=== PATIENT | male | born 1995 | race Caucasian/White ===

== ENCOUNTER 2017-03-15 14:00 | Emergency (ER) | payer OTHER ==
[~2017-03-15] VITALS: Ht 198.1 cm; Wt 130.0 kg
[2017-03-15 14:04] VITALS: BP_SYST 164; BP_DIAS 10; BP_DIAS 100; PULSE 117; RESP 18; TEMP 98.5; O2SAT 94
--- NOTE | 2017-03-15 14:06 | PD ---
Physical Exam Date Seen by Provider: Mar 15, 2017 Time Seen by Provider: 14:05 Narrative 21 yo male here for evaluation of N/V and dizziness. Going on for a few days. Per patient it started with a LUIS. Dizzy. Cannot keep anything down. No chest pain or SOB. Sent here from Urgent care. Feels like he has no energy. 23 pound loss since yesterday. Vitals are stable in triage. Awaiting bed placement. [facility] Medical Record Reviewed: Yes Supervised Visit with KOKI: Chas Muñoz Mar 15, 2017 14:06
--- NOTE | 2017-03-15 17:41 | PD ---
HPI Chief Complaint: General Weakness Time Seen by Provider: 17:23 Travel History International Travel<30 days: No Contact w/Intl Traveler<30days: No Traveled to known affect area: No History of Present Illness HPI 21yo M with no significant PMH presents to the ED with multiple complaints. Pt states he has been feeling generalized fatigue and no energy for 2 days. States he feels cramps in his abdomen if he moves. States he has been having intermittent vomiting for 1 year. Also lose 23 pounds in a day. Denies any fever, chest pain, sob, dysuria, hematuria, trauma, focal weakness or numbness. Also said that he was medically discharge from [facility] in May because of adderal. PFSH Social History Tobacco Use: No Allergies-Medications (Allergen,Severity, Reaction): Coded Allergies: No Known Allergies (Unverified , 03/15/17) Review of Systems Except as stated in HPI: all other systems reviewed are Neg Physical Exam Narrative GENERAL: 21yo M in mild distress. SKIN: Focused skin assessment warm/dry. HEAD: Atraumatic. Normocephalic. EYES: Pupils equal and round. No scleral icterus. No injection or drainage. ENT: No nasal bleeding or discharge. Mucous membranes pink and moist. NECK: Trachea midline. No JVD. CARDIOVASCULAR: Tachycardic in the 110s. No murmur appreciated. RESPIRATORY: No accessory muscle use. Clear to auscultation. Breath sounds equal bilaterally. GASTROINTESTINAL: Abdomen soft, States started cramping with palpation. No rebound tenderness or guarding. MUSCULOSKELETAL: No obvious deformities. No clubbing. No cyanosis. No edema. NEUROLOGICAL: Awake and alert. No obvious cranial nerve deficits. Motor grossly within normal limits. Normal speech. PSYCHIATRIC: Appropriate mood and affect; insight and judgment normal. Data Data Last Documented VS Vital Signs Date Time Temp Pulse Resp B/P (MAP) Pulse Ox O2 Delivery O2 Flow Rate FiO2 03/15/17 19:09 90 18 154/82 (106) 100 Room Air 03/15/17 14:04 98.5 Orders Orders Complete Blood Count With Diff (03/15/17 17:32) Basic Metabolic Panel (Bmp) (03/15/17 17:32) Thyroid Stimulating Hormone (03/15/17 17:32) Thyroxine (T4) (03/15/17 17:32) Electrocardiogram (03/15/17 ) Creatine Kinase (Cpk) (03/15/17 17:32) Ondansetron Inj (Zofran Inj) (03/15/17 17:45) Sodium Chlor 0.9% 1000 Ml Inj (Ns 1000 M (03/15/17 17:45) Lorazepam Inj (Ativan Inj) (03/15/17 17:45) CKMB (03/15/17 17:50) CKMB% (03/15/17 17:50) Sodium Chlor 0.9% 1000 Ml Inj (Ns 1000 M (03/15/17 19:00) Ed Discharge Order (03/15/17 19:52) Labs Laboratory Tests Test 03/15/17 17:50 White Blood Count 11.4 TH/MM3 Red Blood Count 5.92 MIL/MM3 Hemoglobin 15.7 GM/DL Hematocrit 46.9 % Mean Corpuscular Volume 79.3 FL Mean Corpuscular Hemoglobin 26.5 PG Mean Corpuscular Hemoglobin Concent 33.4 % Red Cell Distribution Width 13.5 % Platelet Count 399 TH/MM3 Mean Platelet Volume 7.1 FL Neutrophils (%) (Auto) 72.9 % Lymphocytes (%) (Auto) 19.8 % Monocytes (%) (Auto) 6.3 % Eosinophils (%) (Auto) 0.3 % Basophils (%) (Auto) 0.7 % Neutrophils # (Auto) 8.3 TH/MM3 Lymphocytes # (Auto) 2.2 TH/MM3 Monocytes # (Auto) 0.7 TH/MM3 Eosinophils # (Auto) 0.0 TH/MM3 Basophils # (Auto) 0.1 TH/MM3 CBC Comment DIFF FINAL Differential Comment Blood Urea Nitrogen 25 MG/DL Creatinine 1.80 MG/DL Random Glucose 94 MG/DL Calcium Level 9.8 MG/DL Sodium Level 138 MEQ/L Potassium Level 3.8 MEQ/L Chloride Level 101 MEQ/L Carbon Dioxide Level 30.1 MEQ/L Anion Gap 7 MEQ/L Estimat Glomerular Filtration Rate 48 ML/MIN Total Creatine Kinase 681 U/L Creatine Kinase MB 4.7 NG/ML Creatine Kinase MB % 0.7 % Thyroxine (T4) 9.0 MCG/DL Thyroid Stimulating Hormone 3rd Gen 1.370 uIU/ML [facility] Medical Decision Making Medical Screen Exam Complete: Yes Emergency Medical Condition: Yes Interpretation(s) EKG: NSR 91bpm. Normal axis. Differential Diagnosis Anxiety vs. hyperthyroidism vs. rhabdomyolysis vs. electrolyte abnormality Narrative Course 21yo M with multiple complaints. Labs reviewed, WBC 11.4. BUN/creatinine elevated at 25/1.80. CPK elevated at 681. TSH and T4 normal. Pt given ativan 1mg IV, NS IVF x2. HR came down to 90s after 1st liter of fluid. 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 Pt feeling better. Advised to follow up with primary care physician. Return precautions given. Diagnosis Primary Impression: Muscle cramps Patient Instructions: General Instructions Departure Forms: Tests/Procedures Additional Instructions: Your creatine kinase was elevated at 681 and may be secondary to muscle break down. Please try to take it easy for the next few days and do not do excessive exercise Creatinine is also elevated at 1.80. Please follow up with your primary care physician regarding this. Return to the ED if symptoms worsen. Please hydrate and drink plenty of fluids. Med/Other Pt SpecificInfo: No Change to Meds Disposition: 01 DISCHARGE HOME Condition: Stable Marily Aragon DO Mar 15, 2017 17:41
[2017-03-15] MEDS ORDERED: SODIUM CHLOR 0.9% 1000 ML INJ 1,000 ML IV ONE ×2 (17:45→19:00)
[2017-03-15] MEDS ORDERED: ONDANSETRON HCL 4 MG/2 ML VIAL IV PUSH ONE (17:45)
[2017-03-15] MEDS ORDERED: LORazepam 2 MG/ML VIAL IV PUSH ONE (17:45)
[2017-03-15 18:11] LABS: AUTOMATED NEUTROPHIL # 8.3 TH/MM3 (1.8-7.7); BASOPHIL # 0.1 TH/MM3 (0-0.2); BASOPHIL % 0.7 % (0.0-2.0); EOSINOPHIL % 0.3 % (0.0-4.0); HEMATOCRIT 46.9 % (39.0-51.0); HEMO FLAGS DIFF FINAL; LYMPH % 19.8 % (9.0-44.0); LYMPHOCYTE # 2.2 TH/MM3 (1.0-4.8); MEAN CELL VOLUME 79.3 FL (80.0-100.0); MEAN CORPUSCULAR HEMOGLOBIN 26.5 PG (27.0-34.0); MEAN CORPUSCULAR HGB CONC 33.4 % (32.0-36.0); MONO % 6.3 % (0.0-8.0); NEUT % 72.9 % (16.0-70.0); PLATELET COUNT 399 TH/MM3 (150-450); RED BLOOD COUNT 5.92 MIL/MM3 (4.50-5.90); RED CELL DISTRIBUTION WIDTH 13.5 % (11.6-17.2); WHITE BLOOD COUNT 11.4 TH/MM3 (4.0-11.0)
[2017-03-15 18:23] LABS: BICARBONATE 30.1 MEQ/L (21.0-32.0); POTASSIUM 3.8 MEQ/L (3.5-5.1)
[2017-03-15 18:45] LABS: CKMB 4.7 NG/ML (0.5-3.6)
[2017-03-15 19:09] VITALS: BP 154/82; PULSE 90; RESP 18; O2SAT 100
--- NOTE | 2017-03-16 23:47 | EKG ---
Date Performed: 03/15/2017 Time Performed: 18:50:54 PTAGE: 21 years EKG: Sinus rhythm NONSPECIFIC T-WAVE ABNORMALITY BORDERLINE ECG NO PREVIOUS TRACING DOCTOR: Chase Cole Interpretating Date/Time 03/16/2017 23:45:58
== END 2017-03-15 20:11 | disposition home or self-care (01) ==
LOC: NEPE 14:00
DX: R25.2 Cramp and spasm (principal)
CPT/HCPCS: 80048; 82550; 82552; 84436; 84443; 85025; 93005; 96361; 96374; 99284; J2405; J7030